=== PATIENT | female | born 2000 | race Caucasian/White ===

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

== ENCOUNTER 2021-08-13 11:53 | Emergency (ER) | payer MEDICAID ==
[~2021-08-13] VITALS: Ht 157.5 cm; Wt 100.0 kg
[2021-08-13] MEDS ORDERED: LIDOCAINE 2% VISCOUS 15 ML SOLUTION UDCUP PO ONE (12:30)
[2021-08-13] MEDS ORDERED: KETOROLAC TROMETHAMINE 30 MG/ML VIAL IM ONE (12:30)
[2021-08-13 12:55] LABS: COVID AG,FIA SOURCE NASOPHARYNGEAL
[2021-08-13] MEDS ORDERED: ACETAMINOPHEN 650 MG/20.3 ML SOLUTION UDCUP PO ONE (13:45)
[2021-08-13 14:15] LABS: INFLUENZA TYPE A NEGATIVE FOR TYPE A (NEGATIVE); INFLUENZA TYPE B NEGATIVE FOR TYPE B (NEGATIVE)
[2021-08-13 14:30] LABS: RAPID GROUP A STREP POSITIVE (NEGATIVE)
[2021-08-13] MEDS ORDERED: PENICILLIN G BENZATHINE LA 1,200,000 UNITS/2 ML SYRINGE IM ONE (14:45)
[2021-08-13 15:12] VITALS: BP 121/79
== END 2021-08-13 15:13 | disposition home or self-care (01) ==
LOC: EMS 11:53
DX: J02.0 Streptococcal pharyngitis (principal); Z20.822 Contact with and (suspected) exposure to COVID-19
CPT/HCPCS: 81025; 87426; 87430; 87804; 96372; 99284; J0561; J1885; U0003

== ENCOUNTER 2021-10-02 11:31 | Emergency (ER) | payer MEDICAID, OTHER ==
[~2021-10-02] VITALS: Ht 157.5 cm; Wt 101.8 kg
[2021-10-02] MEDS ORDERED: KETOROLAC TROMETHAMINE 30 MG/ML VIAL IM ONE (12:30)
[2021-10-02] MEDS ORDERED: OFLOXACIN 0.3% 5 ML OTIC SOLUTION AU ONE (12:30)
[2021-10-02] MEDS ORDERED: CEFUROXIME AXETIL 250 MG TABLET PO ONE (12:30)
[2021-10-02] MEDS ORDERED: ACETAMINOPHEN 500 MG TABLET PO ONE (12:30)
[2021-10-02] MEDS ORDERED: CEFU500T41 PO (13:12)
[2021-10-02] MEDS ORDERED: OFLO5DRO21 AU (13:12)
[2021-10-02 13:38] VITALS: BP 129/68
[2021-10-02] MEDS ORDERED: CLIN300C3 PO (14:00)
[2021-10-02 14:51] LABS: COVID AG,FIA SOURCE NASOPHARYNGEAL
== END 2021-10-02 14:19 | disposition home or self-care (01) ==
LOC: EMS 11:35
DX: H66.93 Otitis media, unspecified, bilateral (principal); Z20.822 Contact with and (suspected) exposure to COVID-19
CPT/HCPCS: 87426; 96372; 99284; C9803; J1885